=== PATIENT | female | born 1955 | race Caucasian/White ===

== ENCOUNTER → 2017-02-28 | Outpatient (CLI) | payer OTHER ==
[~2017-02-28] MED LIST: ARIMIDEX1 MG PO; ATORVASTATIN CA10 MG PO; BUMETANIDE2 M1 PO; BUMEX PO; BUMEX2 MG PO; BUPROPION XL300 M1 PO; CARTIA XT120 MG PO; CHEWABLE ASPIRI81 MG PO; CIPRO PO; CLARITIN10 M2 PO; CLARITIN10 M3 PO; COLCHICINE0.6 M1 PO; COLCRYS0.6 M2 PO; COUMADIN PO; COUMADIN6 MG PO; CYMBALTA PO; CYMBALTA30 MG PO; DIGITEK125 MC1 PO; DIGOX0.25 MG PO; DILTIAZEM HCL30 MG PO; DILTIAZEM HCL60 MG PO; ELIQUIS5 MG PO; FUROSEMIDE40 MG PO; FUROSEMIDE80 MG PO; GABAPENTIN300 M2 PO; GABAPENTIN600 MG PO; GLUCOTROL PO; HUMALOG100 U/M1 SUBQ; HUMULIN R500 UNIT/1 SUBQ; HUMULIN R500 UNIT/2 INJ; HYDROCHLOROTHIA25 MG PO; JANUVIA PO; LANOXIN PO; LANTUS SOLOSTAR3 ML SUBQ; LEVAQUIN250 MG PO; LEVO-T125 MCG PO; LIOTHYRONINE S25 MCG PO; LIPITOR PO; LOPRESSOR PO; LOVENOX SUBQ; LYRICA100 MG PO; LYRICA50 MG PO; MAGNESIUM OXID200 MG PO; METFORMIN HCL1000 M1 PO; METFORMIN PO; METOPROLOL SUCC50 MG PO; METOPROLOL TAR100 MG PO; MIRTAZAPINE45 M1 PO; MIRTAZAPINE45 MG PO; NAPROSYN375 MG PO; NOVOLOG FL100 UNIT/1 SUBQ; OXYCODON-ACETA1 EAC1 PO; OXYGEN; PROVERA PO; PROVERA10 MG PO; SYNTHROID125 PO; TAMBOCAR PO; TYLENOL #3 PO; VIGAMOX3 M1 OS; VITAMIN B12-FO1 EACH PO; VITAMIN D250000 UNIT PO; WARFARIN SODIUM10 M1 PO; WARFARIN SODIUM10 MG PO; WARFARIN SODIUM6 M1; WARFARIN SODIUM6 M1 PO; WELLBUTRIN SR PO; WELLBUTRIN XL PO; ZOVIRAX30 GM TOP; ZYLOPRIM PO; [UNRECOGNIZED DRUG - OTHER] AD
--- NOTE | ~2017-02-28 | CR127 ---
[facility]. [facility] A Service of [facility] & [facility] RADIOLOGY TEXT RESULTS PATIENT: BRYANT MOJICA LOCATION: [facility] : 54 UNIT #: [id number] AGE: [address]: Marcelina Davis MEDICAL RECORD ADMINISTRATOR SEX: F ORDER DR: [id number] [address] [address] [id number] O MR#: [id number] Acc #: [id number] NAME: BRYANT MOJICA : 1955 SEX: F STUDY DATE/TIME: 02/28/2017 16:14 UNIT: [facility] ROOM: STUDY DESCRIPTION: CR Foot Complete Min 3 View Rt Attending Physician: Marcelina Davis A.P.R.N. Referring Physician: Marcelina Davis A.P.R.N. Ordering Physician: Marcelina Davis A.P.R.N. Primary Care Physician: Janae Quispe M.D. MEDICAL IMAGING REPORT This report is preliminary unless electronic signature is present. EXAM Right foot INDICATIONS Bilateral foot pain for 4 weeks. FINDINGS 3 views of the right foot were obtained. There is degenerative change at the first tarsometatarsal with joint space narrowing and osteophyte formation. The other bones of the foot are normal. IMPRESSION Degenerative changes of the first tarsometatarsal joint. Otherwise normal. Dictated by... Derrick Torres M.D. THIS IS AN ELECTRONICALLY VERIFIED REPORT Derrick Torres M.D. at 03/02/2017 2:00 PM FEL/to TD: 03/01/2017 23:08 JOB #: [id number] MEDICAL IMAGING REPORT Page 1 of 1
--- NOTE | ~2017-02-28 | CR181 ---
[facility] [place]. [facility] A Service of [facility] & [facility] RADIOLOGY TEXT RESULTS PATIENT: BRYANT MOJICA LOCATION: [facility] : 53 UNIT #: [id number] AGE: [address]: Marcelina Davis ACCESS ASSOC SEX: F ORDER DR: [id number] [address] [address] [id number] O MR#: [id number] Acc #: [id number] NAME: BRYANT MOJICA : 1955 SEX: F STUDY DATE/TIME: 02/28/2017 16:14 UNIT: [facility] ROOM: STUDY DESCRIPTION: CR Lumbar Spine 2 or 3 Views Attending Physician: Marcelina Davis A.P.R.N. Referring Physician: Marcelina Davis A.P.R.N. Ordering Physician: Marcelina Davis A.P.R.N. Primary Care Physician: Janae Quispe M.D. MEDICAL IMAGING REPORT This report is preliminary unless electronic signature is present. EXAM Lumbar spine 3 view series HISTORY Low back pain for 4 weeks after falling out of a wheelchair. FINDINGS Three views of the lumbar spine were obtained. The vertebral bodies have normal alignment and the vertebral bodies are normal in height. The disc spaces are normal. There are mild facet degenerative changes at 4-5 and 3-4. IMPRESSION Mild lower lumbar spine facet degenerative changes. No subluxation or fracture. Dictated by... Derrick Torres M.D. THIS IS AN ELECTRONICALLY VERIFIED REPORT Derrick Torres M.D. at 03/02/2017 2:00 PM FEL/to TD: 03/01/2017 23:18 JOB #: [id number] MEDICAL IMAGING REPORT Page 1 of 1
--- NOTE | ~2017-02-28 | CR126 ---
[facility] A Service of [facility] & [facility] RADIOLOGY TEXT RESULTS PATIENT: BRYANT MOJICA LOCATION: [facility] : 54 UNIT #: [id number] AGE: [address]: Marcelina Davis COTTON BALL MACHINE TENDER SEX: F ORDER DR: [id number] [address] [address] [id number] O MR#: [id number] Acc #: [id number] NAME: BRYANT MOJICA : 1955 SEX: F STUDY DATE/TIME: 02/28/2017 16:14 UNIT: [facility] ROOM: STUDY DESCRIPTION: CR Foot Complete Min 3 View Lt Attending Physician: Marcelina Davis A.P.R.N. Referring Physician: Marcelina Davis A.P.R.N. Ordering Physician: Marcelina Davis A.P.R.N. Primary Care Physician: Janae Quispe M.D. MEDICAL IMAGING REPORT This report is preliminary unless electronic signature is present. EXAM Left foot. INDICATION Left foot pain for 4 weeks. FINDINGS 3 views of the left foot were obtained. The first IP joint is flexed, but otherwise, I believe it is normal. There are no fractures or significant degenerative changes. IMPRESSION Normal left foot. Dictated by... Derrick Torres M.D. THIS IS AN ELECTRONICALLY VERIFIED REPORT Derrick Torres M.D. at 03/02/2017 2:00 PM MEGAN/jeffrey TD: 03/01/2017 23:17 JOB #: [id number] MEDICAL IMAGING REPORT Page 1 of 1
== END | disposition home or self-care (01) ==
LOC: SRAD 15:50
DX: M79.672 Pain in left foot (principal); M79.671 Pain in right foot; M47.816 Spondylosis without myelopathy or radiculopathy, lumbar region
CPT/HCPCS: 72100; 73630

== ENCOUNTER 2017-04-22 17:50 | Observation (INO) | payer OTHER ==
--- NOTE | ~2017-04-22 | CO ---
Unit #: [id number] #: [id number] Patient: ARMANDO MOJICA [id number] [address] [place], [place] [address] [id number] I MR#: [id number] NAME: ARMANDO MOJICA ROOM: 564 Age: 61 Sex: F Admission Date: 04/22/2017 : 1955 Attending Physician: Sonam Delgado M.D. Primary Care Physician: Janae Quispe M.D. Consultation Date: 04/24/2017 CONSULTATION REPORT REASON FOR CONSULTATION Right ear pain and diabetic management. HISTORY OF PRESENTING ILLNESS Ms. armando Mojica is a 61-year-old morbidly obese female who was admitted by Dr. Kehinde Cooper with atrial fibrillation and rapid ventricular rate. The patient came with shortness of breath and racing for heart. The patient was started on Cardizem drip and was admitted to Telemetry Unit at [facility]. The patient also had elevated troponin of 0.5, which could be probably related to her rapid rate. The patient's palpitations have not improved. She just fell down today, scraped her right knee, and now complaining of chest pain. Cardiac enzymes and EKGs being done. The patient started complaining of right ear pain. According to the patient, she was seen by FLACA Hewitt and was told that she has a wax or some ear infection. She is not on any antibiotics. She does not complain of any discharge. She does not complain of dizziness. She does not complain of vertigo. PAST MEDICAL HISTORY The patient does have significant past medical history of; 1. Paroxysmal atrial fibrillation. 2. Hyperlipidemia. 3. Hypertension. 4. Diabetes mellitus type 2. 5. Hypothyroidism. 6. Pulmonary fibrosis. 7. Chronic respiratory failure, on home O2. 8. Chronic kidney disease. 9. Morbid obesity. 10. History of breast cancer. PAST SURGICAL HISTORY 1. History of bilateral mastectomy. 2. History of cholecystectomy. MEDICATIONS At this time are warfarin 10 mg, Cardizem 60 mg t.i.d., Toprol-XL 100 mg daily, Humulin R 200 units a.c. and at bedtime, Remeron at nighttime, aspirin 81 mg daily, Cymbalta 60 mg daily, Januvia 100 mg daily, Lipitor 10 mg daily, vitamin B12 of 100 mg daily, Wellbutrin 450 mg daily, Bumex 2 mg daily, Claritin 10 mg daily, Lanoxin 0.25 mg daily, vitamin D 50,000 units weekly, colchicine 0.6 mg daily, Neurontin 600 mg twice a day, Synthroid 0.125 mg daily, Provera 10 mg twice a day, and Zyloprim 300 mg daily. Unit #: [id number] #: [id number] Patient: ARMANDO MOJICA PHYSICAL EXAMINATION GENERAL: The patient does not seem to be in any respiratory distress. She has been evaluated in room 564. VITAL SIGNS: Blood pressure is 124/69, respiratory rate 18, pulse is 63, temperature 98.1, and oxygen saturation is 91%. The patient's BMI is 49. HEENT: Head is normocephalic. Eye movements are normal. Right ear, there is lot of sediment present, seems like impaction. Unable to visualize the right tympanic membrane. Left tympanic membrane, there are chronic changes and scarring is present. CHEST: Decreased air entry bilaterally. CVS: S1 and S2 positive. Irregular rhythm. ABDOMEN: Obese and benign. EXTREMITIES: Trace edema. RADIOLOGY ASST: The patient is awake, alert, and oriented x3. No focal neurological deficit. DIAGNOSTIC STUDIES LABORATORY RESULTS TODAY: WBC 6.9, hemoglobin 14.1, hematocrit 44.1, and platelet count 282. Sodium 140, potassium 3.6, chloride 103, BUN 33, and creatinine 1.3. Calcium 9.6, glucose is 197. PT/INR is 11.8 and 1.1. ASSESSMENT AND PLAN 1. Atrial fibrillation with rapid ventricular rate. The patient is on Cardene drip, which is being discontinued. The patient has been started on Lanoxin, beta-serena, and calcium channel serena. She is on anticoagulation therapy, Lanoxin and warfarin. The patient's INR is subtherapeutic that needs to be checked on daily basis. 2. Chest pain. The patient just had a chest pain. EKG and cardiac enzymes are being done. The patient's other treatment will be as per Cardiology. 3. Diabetes mellitus type 2, which is uncontrolled. Last hemoglobin A1c in October was 9.6. The patient is on very high dose of regular insulin. She is not on any Levemir at this time. We are going to start on long-acting insulin and continue sliding scale. The patient does have history of significant insulin resistance. Diet counseling done. 4. Right otalgia, most likely secondary to cerumen impaction. Debrox drops are being advised, 5 to 10 drops b.i.d. We will evaluate again to look at tympanic membrane. 5. Chronic respiratory failure, on home O2. Continue same. Dr. Mack has evaluated the patient. The patient will follow up with Dr. Mack as an outpatient. The patient does have significant pulmonary fibrosis. 6. Hypothyroidism. We are going to check TSH as last one done in 2016 showed elevated TSH. We may need to adjust the dose. 7. Morbid obesity. Again counseling done. Thank you, Dr. Bourne, for involving us in the patient's care. We will continue to follow along with you. Dictated by... Cata Faria M.D. GILLIAN/bryant TD: 04/26/2017 04:28 JOB #: [id number] Unit #: [id number] #: [id number] Patient: ARMANDO MOJICA CONSULTATION REPORT Page 1 of 1 X Cata Faria MD X CONSULTATION REPORT
--- NOTE | ~2017-04-22 | EKG ---
PATIENT: BRYANT MOJICA UNIT #: [id number] Ventricular Rate: 115 BPM Atrial Rate: 416 BPM QRS Duration: 64 ms Q-T Interval: 290 ms QTC Calculation(Bezet): 401 ms Calculated R Wilder: 24 degrees Calculated T Wilder: 8 degrees Diagnosis Line: Atrial fibrillation with rapid ventricular Diagnosis Line: response Diagnosis Line: Nonspecific ST abnormality Diagnosis Line: Abnormal ECG Diagnosis Line: When compared with ECG of 22-NOV-2016 06:54, Diagnosis Line: Vent. rate has increased BY 40 BPM Diagnosis Line: Nonspecific T wave abnormality no longer evident Diagnosis Line: in Anterolateral leads Diagnosis Line: Confirmed by CIRA YOST MD ([id number]) on Diagnosis Line: 04/23/2017 3:24:19 PM INTERPRETING MD: PRIYANK HERRERA
--- NOTE | ~2017-04-22 | CO ---
Unit #: [id number] #: [id number] Patient: BRYANT MOJICA [id number] [address] [place], [place] [address] [id number] I MR#: [id number] NAME: BRYANT MOJICA ROOM: 564 Age: 61 Sex: F Admission Date: 04/22/2017 : 1955 Attending Physician: Sonam Delgado M.D. Primary Care Physician: Janae Quispe M.D. CONSULTATION REPORT HISTORY OF PRESENT ILLNESS Ms. Mojica is a 61-year-old female, known to me from office visits, who has morbid obesity, chronic respiratory failure with nocturnal oxygen, obstructive sleep apnea on CPAP, and some degree of possible fibrosis. She actually was seen in the office again in 11/2016. At that time, she complained of increasing shortness of breath and we ordered PFTs and a CAT scan. She did not make either appointment. She now presents to the hospital with her heart racing. When that occurred, she had some chest discomfort and some shortness of breath. Otherwise, she denies any shortness of breath, wheezing, sputum production, or cough. PAST MEDICAL HISTORY Remarkable for paroxysmal atrial fibrillation, hyperlipidemia, diabetes, hypothyroidism, some degree of pulmonary fibrosis, history of breast cancer, chronic kidney disease, chronic respiratory failure, obstructive sleep apnea. MEDICATIONS At home, according to the EHR, metoprolol, Lipitor, Wellbutrin, Lanoxin, Cymbalta, Lantus insulin, Coumadin, Bumex, oxygen as above, CPAP as above. ALLERGIES No known medical allergies. SOCIAL HISTORY She is a nonsmoker. She does not drink. FAMILY HISTORY No familial lung disease. REVIEW OF SYSTEMS She really does not walk. She generally gets around in a wheelchair. No fever, chills, weight loss, chest discomfort as above. No abdominal pain, melena, hematochezia, hematemesis, hematuria, dysuria, focal weakness, paresthesias, leg pain, swelling, wheezing. She is on no inhaled medications. Further review of systems is negative. PHYSICAL EXAMINATION GENERAL: Reveals a patient, who is in no acute distress. VITAL SIGNS: She has a T-max of 100.7, now afebrile, pulse 84, respiratory rate is 18, blood pressure is 104/54. She is 5 feet 4 inches, weighed 286. BMI is 49, however, yesterday her weight was recorded at 335. She did not lose 50 pounds in less than 24 hours. Obviously, the Unit #: [id number] #: [id number] Patient: BRYANT MOJICA weights are inaccurate. Most of her weights are in the 340 range. HEENT: Pupils are equal, round, and reactive to light. Sclerae anicteric. Head atraumatic. NECK: Supple. No supraclavicular or cervical adenopathy appreciated. CHEST: Decreased breath sounds. No definite crackles or wheeze. CARDIAC: Regular rate and rhythm. No pathologic murmur, rub, or gallop. ABDOMEN: Soft and nontender. No hepatomegaly or rebound. EXTREMITIES: Reveal no clubbing, cyanosis, or edema. No calf tenderness. SKIN: Warm and dry without rash or diaphoresis. NEUROLOGIC: Grossly intact. No focal, motor or sensory deficits. Please note that her exam is severely limited by her body habitus. DIAGNOSTIC STUDIES IMAGING STUDIES: Chest x-ray fairly unremarkable. LABORATORY RESULTS: Creatinine 1.2. Blood sugar 367. Hemoglobin A1c in October was 9.9. TSH in October was 9.54. INR normal. CBC normal. Cardiac enzymes normal. No urinalysis performed. IMPRESSION 1. Paroxysmal atrial fibrillation. 2. Chronic respiratory failure with oxygen at night. 3. Obstructive sleep apnea, compliant with CPAP per history. 4. Possible fibrosis, failed to show for scheduled appointment for CT scan and did not get her PFTs. 5. Medical problems listed above. PLAN We will check room air O2 needs to guide therapy at home. Continue CPAP at night with sleep. I will ask family to bring it in, so she can use nightly. Consider PFTs as an outpatient, but her shortness of breath apparently has improved. She complains of no shortness of breath currently. Consider outpatient high-resolution CAT scan, but given her exam and chest x-ray, I am not convinced she has significant fibrosis such as UIP. Certainly, if she has worsening shortness of breath, that will have to be evaluated. Thank you very much for allowing me to participate in the care of Ms. Mojica. Dictated by... James Mack M.D. DAVIDSON/bryant TD: 04/24/2017 02:07 JOB #: [id number] Unit #: [id number] #: [id number] Patient: BRYANT MOJICA CONSULTATION REPORT Page 1 of 1 X James Mack MD CONSULTATION REPORT
--- NOTE | ~2017-04-22 | CO ---
Unit #: [id number] #: [id number] Patient: BRYANT MOJICA [id number] [facility] [address]. [place], [place] [address] [id number] I MR#: [id number] NAME: BRYANT MOJICA ROOM: 564 Age: 61 Sex: F Admission Date: 04/22/2017 : 1955 Attending Physician: Sonam Delgado M.D. Primary Care Physician: Janae Quispe M.D. Consultation Date: 04/25/2017 CONSULTATION REPORT ADDITIONAL REFERRING PHYSICIAN Dr. Rodriguez. REASON FOR CONSULTATION Left-sided numbness. PRIMARY CARE PHYSICIAN Janae Quispe M.D. PATIENT IDENTIFICATION This is a 61-year-old right-handed, white female, who was evaluated in room 564 at [facility]. SOURCE OF INFORMATION The patient and evaluation by admitting team and consultants. PROBLEM LIST 1. Paroxysmal atrial fibrillation. 2. Hyperlipidemia. 3. Diabetes. 4. Hypothyroidism. 5. Pulmonary fibrosis. 6. History of breast cancer. 7. Chronic kidney disease. 8. Morbid obesity. 9. Obstructive sleep apnea. She uses a CPAP. 10. Status post bilateral mastectomies. 11. History of cholecystectomy. HISTORY OF PRESENT ILLNESS This is a 61-year-old female with history of problems as discussed above. She was admitted on the because she felt short of air and racing of the heart. She was started on Cardizem drip. She has chronic respiratory failure. She was being evaluated, but yesterday it looks like she got up and she fell because she slipped in her own urine on the floor. This patient reports that she did not really hit her head hard or had significant flexion-extension injury, but she reported some numbness on the left side, not very significant weakness that may have gotten better yesterday, but she is complaining of some minimal numbness yesterday. Dr. Rodrgiuez ordered MRI of the brain, but because of her abdominal girth, she would not fit an MRI. She has no symptoms on the face. She has some minimal numbness on the left side, which is very nonspecific. The patient reports that she has immobilization because she has had Unit #: [id number] #: [id number] Patient: BRYANT MOJICA "sciatica surgery" and she uses mostly wheelchair or walker and she only pivots, so there is some left-sided weakness, but again how much of that is new and what about the comorbidities. It does not look like stroke-like situation though she is on anticoagulation, but with low INR. No headaches. No migraines. No seizures. No paralytic type issues. PAST MEDICAL HISTORY As discussed above. PAST SURGICAL HISTORY As discussed above. ALLERGIES None. HOME MEDICATIONS Metoprolol 50 mg b.i.d., Lipitor 10 mg daily, Wellbutrin 100 mg daily, Lanoxin 250 mcg daily, Cymbalta 60 mg daily, Lantus 100 units subcutaneous at night, Coumadin 10 mg daily, oxygen p.r.n., Bumex. The above other medication at home and please refer to the MAR as medications here. FAMILY HISTORY No primary neurologic issues known. SOCIAL HISTORY She is . She has limited mobility. Does not smoke. Does not drink. REVIEW OF SYSTEMS GENERAL: Mostly as discussed in history of present illness. She denies any weight issues, fever, chills, rigor, or sweats. She does have chronic breathing issues. HEENT: She denies any problems as far the HEENT is concerned. NECK: No real neck problem. CARDIOVASCULAR: No chest pain. She was supposed to be on anticoagulation otherwise. GI: No nausea, vomiting, diarrhea, or constipation. GENITOURINARY: No genitourinary symptoms. LUNGS: She has chronic shortness of air. Chronic pulmonary issues. BACK: She has chronic back problem. PSYCHIATRIC: No psychotic issue. NEUROLOGIC: As discussed. No hematologic, dermatologic, or endocrine issues. PHYSICAL EXAMINATION VITAL SIGNS: Temperature 98.5, pulse 79, respirations 18, blood pressure is 114/81, pain was 0 to 7/10, O2 saturations were 95% to 97%, weight was 332 pounds. BMI was 57. NEUROLOGIC: The patient is awake. She is alert. She thinks it is the 04/23 or 04/24. She can name. She can follow commands. No right or left confusion. No finger agnosia. Unit #: [id number] #: [id number] Patient: BRYANT MOJICA Cranial nerve examination demonstrates full [place] of vision to confrontation. Eye movements are conjugate. I did not see any ptosis. I did not see any nystagmus. Extraocular movements are intact. Sensation on the face and scalp are normal. Strength of muscles of facial expression normal. Hearing seemed to be intact. Tongue was midline. Uvula was midline. Palate elevation normal. Head turning and shoulder shrugs were unremarkable. Motor examination demonstrated normal bulk and tone and strength in upper extremity was 5-/5. Her biggest problem was that she has had bilateral rotator cuff problems. In her lower extremities, she may have weakness on the left side. She is 3+ on the left side and 4- on the right side. Again level of effort is very questionable and I believe her immobilization and her obesity and positioning and her chronic problems are contributing towards this. No particular pattern like proximal versus distal or particular radicular or peripheral nerve type pattern. Sensory examination, decreased sensation on the left side. No particular pattern was identified, nothing on the face, just below the neck. Romberg was not evaluated. No extinction was seen. I could not get any reflexes. Toes are mute. Coordination for mvxtuw-ig-pzbi-to-finger was somewhat limited, but she was able to do it because of her rotator cuff injury and also she has good fine movements and repetitive movements. DIAGNOSTIC STUDIES LABORATORY RESULTS: Her BUN this morning was 39; creatinine was 1.5; GFR estimated was 37; glucose was 66, it was as high as 387. AST was 69. Troponin yesterday was 0.14. Previously high hemoglobin A1c. High triglycerides. White count was 6.9, H and H of 14.1 and 44.1, platelet count was 282. Urinalysis, there was concern about UTI. IMPRESSION This is a very interesting, but very complicated 61-year-old female, who actually had a fall yesterday. She has been complaining of left-sided numbness. There is nothing on the face. This is not fitting the typical in a classic pattern of stroke or transient ischemic attack. We cannot do an MRI, so I would recommend to do CT of the head and CT of the cervical spine and also do carotids. If the CT of the head and carotids are okay and nothing major is shown on CT of the cervical spine, then my recommendation would be to have Spine Surgery see her, though I really doubt that there is a major issue but I cannot rule anything out and I cannot do an MRI. I cannot do with contrast study. I cannot do CTA, so we are limited, but again limited examination, but comorbidities and the recent event point towards more spinal process than anything else, but we will see how things return clerk. Please refer to my orders and I will see her. Call me for any other particular questions or issues. Dictated by... Melva Becker/bryant Unit #: [id number] #: [id number] Patient: BRYANT MOJICA TD: 04/26/2017 08:42 JOB #: [id number] CONSULTATION REPORT Page 1 of 1 X Km Hull MD X CONSULTATION REPORT
--- NOTE | ~2017-04-22 | CR170 ---
[facility] A Service of [facility] & [facility] RADIOLOGY TEXT RESULTS PATIENT: BRYANT MOJICA LOCATION: [facility] 564-01 : 54 UNIT #: [id number] AGE: [address]: Sonam Delgado MD SEX: F ORDER DR: [id number] [facility] [address] [facility]. [place], [place] [address] [id number] I MR#: [id number] Acc #: [id number] NAME: BRYANT MOJICA : 1955 SEX: F STUDY DATE/TIME: 04/24/2017 16:55 UNIT: [facility] ROOM: [facility] STUDY DESCRIPTION: CR Knee 2 Views Rt Attending Physician: Sonam Delgado M.D. Ordering Physician: Sonam Delgado M.D. Primary Care Physician: Janae Quispe M.D. MEDICAL IMAGING REPORT This report is preliminary unless electronic signature is present EXAM Right knee, 2 views. INDICATIONS Pain and swelling after falling today. COMPARISON No comparisons available. FINDINGS There is extensive patellofemoral compartment degenerative change. There is no evidence for joint effusion. There is moderate medial compartment narrowing. There is also some degenerative change in the medial and lateral compartment with osteophyte formation. No evidence of dislocation. IMPRESSION Extensive degenerative changes about the knee with no evidence for fracture or dislocation. Dictated by... Adriano Limon M.D. THIS IS AN ELECTRONICALLY VERIFIED REPORT Adriano Limon M.D. at 04/25/2017 7:24 PM SHAUN/jeffrey TD: 04/24/2017 19:53 JOB #: [id number] MEDICAL IMAGING REPORT Page 1 of 1 COPY
--- NOTE | ~2017-04-22 | BMI ---
[facility] Nutrition Therapy DATE: 04/23/17 Patient: BRYANT MOJICA Physician: ATTPRE Address: [address] [place] [address] DRIVE Room/Bed: [address] [place] [address], Zip: [place] [address] Admit Date: 04/22/17 Date of : 53 Height: 5 4 Weight: 286 129.8 HIGH BMI NOTE: DX: 61 Y.O. FEMALE ADMITTED FOR CHEST PAIN X 2 WEEKS ANTHROPOMETRICS: 5'4", WT: 335# (152 KG), BMI: 57.5 DIET: HEALTHY HEART + CONSISTENT CARBOHYDRATE DIET RECOMMENDATIONS: 1. RECOMMEND TO CONTINUE CURRENT DIET ORDER ABOVE TO PROMOTE GRADUAL WEIGHT LOSS TOWARDS HEALTHY BMI (19.0-25.0) OR +/-10%IBW RD WILL F/U PER PROTOCOL Respectfully, SAM SCHWARTZ MS, RD, LD [facility] cc: client file
--- NOTE | ~2017-04-22 | CT71 ---
[facility] A Service of [facility] RADIOLOGY TEXT RESULTS PATIENT: BRYANT MOJICA LOCATION: [facility] 564-01 : 54 UNIT #: [id number] AGE: [address]: Sonam Delgado MD SEX: F ORDER DR: [id number] [facility] [address] [place], [place] [address] [id number] I MR#: [id number] #: [id number] NAME: BRYANT MOJICA : 1955 SEX: F STUDY DATE/TIME: 04/25/2017 14:13 UNIT: [facility] ROOM: [facility] STUDY DESCRIPTION: CT Head Wo Contrast Attending Physician: Sonam Delgado M.D. Ordering Physician: Km Hull M.D. Primary Care Physician: Janae Quispe M.D. MEDICAL IMAGING REPORT This report is preliminary unless electronic signature is present EXAM CT brain without contrast media, date of study is 04/25. COMPARISON 10/24/2015 HISTORY Fell 1 day ago getting out of hospital bed, bumped head, head and neck pain, slight headache after fall. TECHNIQUE Axial imaging of the brain was performed without contrast media and compared directly to the most recent study of October 24, 2015. This CT exam was performed with one or more of the following radiation dose reduction techniques: Automatic exposure control, adjustment of mA and/or kV according to patient size, and iterative reconstruction. FINDINGS There is a new area of encephalomalacia in the right frontal operculum as well as in the right insular cortex. There is no mass effect associated with this, nor effacement of the overlying sulci suggesting it is chronic, but it has appeared since 2014. Ventricular size and configuration is stable. No mass lesions or mass effect are identified. There is atherosclerotic disease within the carotid siphons and in the vertebral arteries. Bone windows are reviewed and no fractures are identified. 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 This has appeared since 2014 but clearly appears chronic. No additional findings within the brain. No fractures identified. STS. [facility] A Service of [facility] RADIOLOGY TEXT RESULTS PATIENT: BRYANT MOJICA LOCATION: [facility] 564-01 : 53 UNIT #: [id number] AGE: [address]: Sonam Delgado MD SEX: F ORDER DR: Dictated by... Jose L Sims M.D. THIS IS AN ELECTRONICALLY VERIFIED REPORT Jose L Sims M.D. at 04/26/2017 10:22 AM NICO/paula TD: 04/25/2017 21:29 JOB #: [id number] MEDICAL IMAGING REPORT Page 1 of 1 COPY
--- NOTE | ~2017-04-22 | CT52 ---
[facility] A Service of [facility] RADIOLOGY TEXT RESULTS PATIENT: BRYANT MOJICA LOCATION: [facility] 564-01 : 54 UNIT #: [id number] AGE: [address]: Sonam Delgado MD SEX: F ORDER DR: [id number] [facility] [address] [place], [place] [address] [id number] I MR#: [id number] Acc #: [id number] NAME: BRYANT MOJICA : 1955 SEX: F STUDY DATE/TIME: 04/25/2017 12:02 UNIT: [facility] ROOM: [facility] STUDY DESCRIPTION: CT Cervical Spine Wo Cont Attending Physician: Sonam Delgado M.D. Ordering Physician: Km Hull M.D. Primary Care Physician: Janae Quispe M.D. MEDICAL IMAGING REPORT This report is preliminary unless electronic signature is present EXAM CT cervical spine without contrast, dated 04/25/2017. COMPARISON STUDIES None. HISTORY Patient fell a day ago on the floor while getting out of hospital bed. Patient states that she banged her head and has left-sided headache and neck pain since then. Headache has improved today. TECHNIQUE This CT exam was performed with one or more of the following radiation dose reduction techniques: automatic exposure control, adjustment of mA and/or kV according to patient size, and iterative reconstruction. FINDINGS CT of the cervical spine was obtained without contrast in the axial plane followed by sagittal and coronal reformats. Endplate osteophytes are noted in the anterior and posterior aspects. Discs and facet changes are present. C2-3: Disc osteophyte complex which is slightly prominent in the center, particularly in the left central region. Moderate bilateral facet hypertrophic changes are seen with mild canal stenosis. Minimal inferior left neural foraminal encroachment. C3-4: Disc osteophyte complex with bilateral uncinate spurs. Very severe right and zdkw-rq-hmeilhth left facet hypertrophic change. Severe bilateral neural foraminal narrowing is noted with probably mild canal stenosis. Streak artifact limits evaluation. [facility] A Service of [facility] RADIOLOGY TEXT RESULTS PATIENT: BRYANT MOJICA LOCATION: [facility] 564-01 : 53 UNIT #: [id number] AGE: [address]: Sonam Delgado MD SEX: F ORDER DR: C4-5: Disc osteophyte complex with bilateral uncinate spurs, worse on the left. Severe left and moderate right facet hypertrophic changes are noted with severe left neural foraminal narrowing. Borderline size to mild canal stenosis. C5-6: Disc osteophyte complex with bilateral uncinate spurs. Very severe left and severe right neural foraminal narrowing are noted with moderate canal stenosis. Moderate bilateral facet changes are present. C6-7: Disc osteophyte complex with bilateral uncinate spurs, worse on the left. Severe left and ocqg-ex-nsrhvnwt right neural foraminal narrowing is seen with mild right and moderate to severe left facet hypertrophic change. There is probably moderate canal stenosis, difficult to further characterize due to streak artifact. C7-T1: Disc osteophyte complex with severe left and mild right facet hypertrophic change. Ebzn-bb-bkovdkcl left neural foraminal narrowing is seen with borderline size canal. IMPRESSION 1. No acute fracture or subluxation. 2. Degenerative disc and facet changes are noted at multiple levels as described above, worse at C6-7 followed by C5-6 with canal stenosis and bilateral neural foraminal narrowing. 3. Patient's large body habitus causes streak artifact limiting evaluation of the canal throughout most of the visualized cervical spine. 4. No acute fracture or subluxation. Dictated by... Fiona Knight M.D. THIS IS AN ELECTRONICALLY VERIFIED REPORT Fiona Knight M.D. at 04/26/2017 11:44 AM CPR/jt TD: 04/25/2017 22:05 JOB #: [id number] MEDICAL IMAGING REPORT Page 1 of 1 COPY
--- NOTE | ~2017-04-22 | EKG ---
PATIENT: BRYANT MOJICA UNIT #: [id number] Ventricular Rate: 84 BPM Atrial Rate: 73 BPM QRS Duration: 72 ms Q-T Interval: 386 ms QTC Calculation(Bezet): 456 ms Calculated R Coleman: 13 degrees Calculated T Coleman: 21 degrees Diagnosis Line: Atrial fibrillation Diagnosis Line: Nonspecific ST and T wave abnormality Diagnosis Line: Abnormal ECG Diagnosis Line: No previous ECGs available Diagnosis Line: Confirmed by JACQUI DRAKE MD ([id number]) on 04/25/2017 Diagnosis Line: 8:23:31 PM INTERPRETING MD: NOELLE HERRERA
--- NOTE | ~2017-04-22 | CR72 ---
[facility] A Service of [facility] RADIOLOGY TEXT RESULTS PATIENT: BRYANT MOJICA LOCATION: [facility] [address] : 54 UNIT #: [id number] AGE: [address]: Sonam Delgado MD SEX: F ORDER DR: [id number] [facility] [address] [facility] [place], [place] [address] [id number] I MR#: [id number] Acc #: [id number] NAME: BRYANT MOJICA : 1955 SEX: F STUDY DATE/TIME: 04/22/2017 20:28 UNIT: [facility] ROOM: [facility] STUDY DESCRIPTION: CR Chest Single View Portable Attending Physician: Sonam Delgado M.D. Ordering Physician: Hayden Leyva M.D. Primary Care Physician: Janae Quispe M.D. MEDICAL IMAGING REPORT This report is preliminary unless electronic signature is present EXAM Single view chest INDICATION Chest pain for 2 weeks. Pain radiating into the left arm. Left arm numbness and tingling. FINDINGS Single portable AP view of the chest is compared to 11/20/2016. Heart and mediastinal contours within normal limits. Lungs are clear. No pleural effusion. IMPRESSION No acute cardiopulmonary findings. Dictated by... Keshawn Hartman M.D. THIS IS AN ELECTRONICALLY VERIFIED REPORT Keshawn Hartman M.D. at 04/23/2017 10:56 AM ELIER/ilda TD: 04/23/2017 10:29 JOB #: [id number] MEDICAL IMAGING REPORT Page 1 of 1 COPY
--- NOTE | ~2017-04-22 | HP ---
Unit #: [id number] #: [id number] Patient: BRYANT MOJICA [id number] [address] [address] [id number] I MR#: [id number] NAME: BRYANT MOJICA ROOM: 564 Age: 61 Sex: F Admission Date: 04/22/2017 : 1955 Attending Physician: Sonam Delgado M.D. Primary Care Physician: Janae Quispe M.D. HISTORY AND PHYSICAL CHIEF COMPLAINT Shortness of breath with palpitations. HISTORY OF PRESENT ILLNESS This is a 61-year-old woman who has a history of hypertension, diabetes and obesity. She also has a history of paroxysmal atrial fibrillation. She was admitted yesterday because she felt short of breath and racing of her heart. She was started on Cardizem drip. At this moment she is feeling better. She denies orthopnea, PND, palpitations. PAST MEDICAL HISTORY 1. Paroxysmal atrial fibrillation. 2. Hyperlipidemia. 3. Diabetes. 4. Hypothyroidism. 5. Pulmonary fibrosis. 6. History of breast cancer. 7. Chronic kidney disease. 8. Morbid obesity. PAST SURGICAL HISTORY 1. Left mastectomy. 2. Right mastectomy. 3. History of cholecystectomy. SOCIAL HISTORY She does not smoke. Does not drink. FAMILY HISTORY Negative for premature coronary artery disease. ALLERGIES No known drug allergies. CURRENT MEDICATIONS 1. Metoprolol 50 mg b.i.d. 2. Lipitor 10 mg daily. 3. Wellbutrin 100 mg daily. 4. Lanoxin 250 mcg daily. 5. Cymbalta 60 mg daily. 6. Lantus 100 mg subcutaneous at night. 7. Coumadin 10 mg daily. 8. Oxygen p.r.n. 9. Bumex 2 mg b.i.d. Unit #: [id number] #: [id number] Patient: BRYANT MOJICA REVIEW OF SYSTEMS Morbidly obese. Physical she is not very active. She is short of breath all the time. She has a lot of back pain. She has a lot of knee pain. All other systems reviewed and negative. PHYSICAL EXAMINATION GENERAL: She looks comfortable lying in bed. No distress. VITALS: Heart rate 80, blood pressure 122/58, respiratory rate 18. HEENT: Normal pupils, round and reactive. Oral mucosa moist. No central cyanosis. NECK: She has no thyromegaly. Carotid upstroke is normal. Jugular venous distension is not elevated. CHEST: She is breathing normal. Clear to auscultation. HEART: She has no parasternal lift. S1 and S2 normally heard. No gallop. No murmur or rub. ABDOMEN: Soft. Liver and spleen are not enlarged. Abdominal aorta not palpable. Guaiac test not indicated. EXTREMITIES: She has no pedal edema. Two plus bilateral femoral and dorsalis pedis pulses. Digits no clubbing. SKIN: No rash or abnormal pigmentation. NEUROLOGIC: She is oriented times three. Mood is normal. Muscle tone in all extremities normal. DIAGNOSTIC STUDIES CARDIOVASCULAR: She had an echo in the past showing ejection fraction of 55% with LVH. Right now EKG is showing atrial fibrillation with controlled rate. Nonspecific ST and T changes. ASSESSMENT 1. Atrial fibrillation with rapid ventricular rate. 2. Elevated troponin, which is 0.15. That is probably related to her rapid rate. 3. History of hypertension, diabetes and high cholesterol. 4. History of severe morbid obesity with sleep apnea and pulmonary fibrosis. PLAN 1. I increased her metoprolol and increased her p.o. Cardizem. 2. I will consult [facility] for diabetes management. 3. I will also consult Dr. Mack for pulmonary fibrosis. 4. I will treat her medically at this moment. I do not think doing an ischemia workup or cardiac catheterization is indicated, because she is not having any chest pain and no ST and T changes. She definitely has troponin elevation, but that is probably related to her atrial fibrillation with rapid rate. Dictated by Melva Leonardo TD: 04/23/2017 10:07 JOB #: [id number] CC: Matthias Rodriguez M.D. Unit #: [id number] #: [id number] Patient: BRYANT MOJICA HISTORY AND PHYSICAL Page 1 of 1 X Kehinde Cooper MD HISTORY AND PHYSICAL
--- NOTE | ~2017-04-22 | US37 ---
[facility] A Service of [facility] RADIOLOGY TEXT RESULTS PATIENT: BRYANT MOJICA LOCATION: [facility] 564-01 : 53 UNIT #: [id number] AGE: [address]: Sonam Delgado MD SEX: F ORDER DR: [id number] [id number] [facility]. [place], [place] [address] [id number] I MR#: [id number] Acc #: [id number] NAME: BRYANT MOJICA : 1955 SEX: F STUDY DATE/TIME: 04/25/2017 13:37 UNIT: [facility] ROOM: [facility] STUDY DESCRIPTION: US Carotid W/Doppler Bilateral Attending Physician: Sonam Delgado M.D. Ordering Physician: Km Hull M.D. Primary Care Physician: Janae Quispe M.D. MEDICAL IMAGING REPORT This report is preliminary unless electronic signature is present EXAM Carotid Doppler. INDICATIONS Headaches for 1 year. Loss of balance and confusion. Patient has a history of hypertension, hyperlipidemia and diabetes. TECHNIQUE Bilateral carotid ultrasound examination was performed using wyatt-scale, spectral Doppler, and color-flow Doppler imaging. Carotid flow was assessed using standards based on NASCET methodology. FINDINGS Ultrasound examination of the carotid artery shows some mild plaque diffusely throughout the common and internal carotid arteries. Doppler evaluation shows normal flow velocities and normal Doppler waveforms within the carotid and vertebral arteries bilaterally. Peak systolic internal carotid artery flow velocities measure up to 79 cm/sec on the right and 92 cm/sec on the left. There is no evidence of significant carotid stenosis in the neck. IMPRESSION Mild carotid disease. No Doppler ultrasound evidence of flow-limiting or clinically significant carotid stenosis. Dictated by... Lauren Perkins M.D. THIS IS AN ELECTRONICALLY VERIFIED REPORT Lauren Perkins M.D. at 04/26/2017 2:47 PM AFF/jt [facility] A Service [facility] RADIOLOGY TEXT RESULTS PATIENT: BRYANT MOJICA LOCATION: [facility] 564-01 : 53 UNIT #: [id number] AGE: [address]: Sonam Delgado MD SEX: F ORDER DR: TD: 04/25/2017 18:41 JOB #: [id number] MEDICAL IMAGING REPORT Page 1 of 1 COPY
--- NOTE | ~2017-04-22 | EKG ---
PATIENT: JESSIE MOJICAY UNIT #: [id number] Ventricular Rate: 162 BPM Atrial Rate: 324 BPM QRS Duration: 78 ms Q-T Interval: 274 ms QTC Calculation(Bezet): 449 ms P [place]: 200 degrees Calculated R [place]: 19 degrees Calculated T [place]: -26 degrees Diagnosis Line: Atrial flutter with variable A-V block with Diagnosis Line: premature ventricular or aberrantly conducted Diagnosis Line: complexes Diagnosis Line: Possible Inferior infarct , age undetermined Diagnosis Line: Abnormal ECG Diagnosis Line: Diagnosis Line: Confirmed by CIRA YOST MD ([id number]) on Diagnosis Line: 04/23/2017 3:24:27 PM INTERPRETING MD: PRIYANK HERRERA
--- NOTE | ~2017-04-22 | DS ---
Unit #: [id number] #: [id number] Patient: BRYANT MOJICA [id number] [facility]. [place], [place] [address] [id number] I MR#: [id number] NAME: BRYANT MOJICA ROOM: 564 Age: 61 Sex: F Admission Date: 04/22/2017 : 1955 Discharge Date: 04/29/2017 Attending Physician: Matthias Rodriguez M.D. Primary Care Physician: Janae Quispe M.D. DISCHARGE SUMMARY REASON FOR ADMISSION Shortness of breath with palpitations. HOSPITAL COURSE The patient is a 61-year-old female who presented to the [facility] ED on 04/22 at 5 p.m. with complaints of chest pain as well as shortness of breath on and off for the past two weeks. The patient was initially given a loading dose of IV Cardizem and on a Cardizem drip for rate control where her rate obtained control and she was taken off the drip and switched to p.o. medications. The patient did come in with a subtherapeutic INR for the permanent AFib with an INR of 1.1. The patient was placed on Lovenox bridge to Coumadin which is now therapeutic at 2. HIPS was consulted for diabetes management. The patient follows with Dr. Quispe and nurse practitioner in the office and Dr. Faria was consulted during her stay here for help with her diabetes management while she was off her Metformin. Dr. Mack was consulted for pulmonary fibrosis. She uses a CPAP and is compliant with that. There is consideration for pulmonary function tests as an outpatient. We will have the patient to follow up with Dr. Mack. The patient apparently is going to contact Dr. Mack's office to obtain new CPAP supplies. On 04/24, the patient had a fall here in the hospital where she states she got out of the right side of her bed and had to go around the foot of her bed to the other side in order to get on the bedside commode. This is an unusual activity for her as she had been only getting out on the left side of the bed and stand and pivoting to the chair which is her normal level of activity at home as well. The patient states that when she got to the foot of the bed, there was a wet spot, possibly urine, in the floor that she slipped on and she suffered a scrap to her knee. X-ray of the knee was obtained and there was no fracture. Later that day, Dr. Rodriguez saw the patient and there was some mention that her left side was weaker than it had normally bed. Therefore, there was concern for possible stroke with the AFib and the subtherapeutic INR. Neurology was consulted. Neurology recommended to get a MRI and, if positive, they would see the patient. However, the patient was too large for the MRI machine and unable to have it. Therefore, Neurology was consulted for further evaluation and workup. Neurology completed CT scans of the patient which showed chronic old infarct, nothing new and acute. She also had some spinal stenosis of the C5-6 and C6-7 area. It was offered for her to go down to [facility] to have a Neurosurgery consult. However, the patient did not want to do that at this time. She will follow up in the office with an outpatient neurologist, Dr. Marck Mejia. Unit #: [id number] #: [id number] Patient: BRYANT MOJICA The patient also suffered an acute kidney injury where her creatinine jethro to 1.5. Therefore, Renal was consulted and her diuretics were stopped. Renal was consulted and her creatinine improved where now it is at 1.2. They have okayed for her to go home and follow up in the office with Dr. Corado, who is her regular renal doctor. On day of discharge, the patient is doing well. She has no complaints of shortness of breath, chest pain, pressure or tightness. Vital signs are 111/57, temp 99, pulse 70, respirations 18. PHYSICAL EXAMINATION GENERAL APPEARANCE: This is an alert and oriented 61-year-old white female who is in no apparent distress. HEART: S1, S2. Regular rate and rhythm. LUNGS: Clear. ABDOMEN: Rounded, soft, nontender, nondistended. EXTREMITIES: No swelling. NEUROLOGIC: No neurological deficit. The patient does have some baseline weakness on the left side that is more so than the right. DISCHARGE DIAGNOSES 1. Paroxysmal atrial fibrillation, right now currently in sinus rhythm. 2. Elevated troponin that was indeterminate with a peak of 0.15. 3. Subtherapeutic INR now therapeutic. 4. Status post fall 04/24 where she slipped in pee. 5. Hypertension, hyperlipidemia, diabetes. 6. Severe morbid obesity. 7. Obstructive sleep apnea. 8. Pulmonary fibrosis. 9. 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 10. Acute kidney injury, resolved. 11. Old cerebrovascular accident on CT. DIAGNOSTIC TESTING LABORATORY: Sodium 137, potassium 4, chloride 103, CO2 27, BUN 24, creatinine 1.2, glucose 215, magnesium 1.9. INR is pending. DISCHARGE PLAN We will draw PT and INR now to know what the INR result is, have that result called and, if it is within therapeutic range of 2 to 3, we will place to discharge the patient home. The patient will follow up with primary care office in one week for PT and INR monitoring. The patient will follow up with Dr. Rodriguez in two weeks. The patient will follow up with Dr. Marck Mejia for CT scan results that were abnormal. Spinal stenosis as needed. We will plan to have the patient follow up with her renal doctor in the office. DISCHARGE MEDICATIONS 1. Coumadin 10 mg p.o. at bedtime. 2. Gabapentin 600 mg p.o. twice a day. 3. Lyrica 100 mg p.o. twice a day as needed for pain. 4. Wellbutrin 450 mg p.o. daily. 5. Duloxetine 60 mg p.o. daily. 6. Mirtazapine 45 mg p.o. daily. 7. Metformin 1,000 mg p.o. daily. 8. Januvia 100 mg p.o. daily. 9. Claritin 10 mg p.o. daily. Unit #: [id number] #: [id number] Patient: BRYANT MOJICA 10. Provera 10 mg twice a day. 11. Acyclovir 5% ointment topically to the left cheek three times a day. 12. Digoxin 0.25 mg p.o. daily. 13. Cartia 180 mg p.o. daily. 14. Metoprolol succinate 50 mg p.o. twice a day. 15. Bumex 2 mg p.o. daily. 16. Lipitor 10 mg p.o. daily. 17. Humulin, regular insulin. 18. Debrox otic drops. 19. Allopurinol 300 mg p.o. daily. 20. Colchicine 0.6 mg p.o. daily. 21. Aspirin 81 mg p.o. daily. 22. Synthroid 0.25 mg p.o. daily. 23. Vitamin B12 100 mcg p.o. daily. 24. Vitamin D 50,000 units p.o. weekly. Dictated by... Awilda Tirado APRN for Melva Lewis TD: 05/01/2017 07:51 JOB #: [id number] DISCHARGE SUMMARY Page 1 of 1 X X DISCHARGE SUMMARY
[~2017-04-22 17:50] MED LIST changes: -BUMETANIDE2 M1 PO; -CARTIA XT120 MG PO; -CHEWABLE ASPIRI81 MG PO; -CLARITIN10 M3 PO; -COLCHICINE0.6 M1 PO; -DIGITEK125 MC1 PO; -DILTIAZEM HCL60 MG PO; -ELIQUIS5 MG PO; -GABAPENTIN600 MG PO; -HUMULIN R500 UNIT/2 INJ; -LEVO-T125 MCG PO; -LYRICA100 MG PO; -METOPROLOL SUCC50 MG PO; -VITAMIN B12-FO1 EACH PO; -WARFARIN SODIUM10 M1 PO; -WELLBUTRIN SR PO; -ZOVIRAX30 GM TOP; -ZYLOPRIM PO; -[UNRECOGNIZED DRUG - OTHER] AD
[2017-04-22 18:37] LABS: BASOPHIL# 0.1 X10e3 (0-0.3); EOSINOPHIL# 0.2 X10e3 (0-0.7); EOSINOPHIL% 1.8 % (0.0-7.0); HEMATOCRIT 43.9 % (35.0-45.0); HEMOGLOBIN 14.1 gm/dL (12.0-16.0); LYMPHOCYTE# 3.5 X10e3 (1.0-3.5); LYMPHOCYTE% 33.6 % (17.0-45.0); MEAN CELL VOLUME 91.6 FL (83-96); MEAN CORPUSCULAR HEMOGLOBIN 29.6 PG (28-34); MEAN CORPUSCULAR HGB CONC 32.3 g/dL (30-36); MEAN PLATELET VOLUME 7.9 FL (6.5-11.5); MONOCYTE# 0.9 X10e3 (0-1.0); MONOCYTE% 8.4 % (3.0-12.0); NEUTROPHIL# 5.7 X10e3 (1.5-7.1); NEUTROPHIL% 55.2 % (40-75); PLATELET COUNT 282 X10e3 (140-420); RED BLOOD COUNT 4.79 X10e (3.90-5.30); RED CELL DISTRIBUTION WIDTH 14.7 % (11.0-15.5); WHITE BLOOD COUNT 10.3 X10e3 (4.0-10.5)
[2017-04-22 18:38] LABS: DIFF IND NO
[2017-04-22 19:01] LABS: ALBUMIN SERUM 3.7 g/dL (3.5-5.0); BILIRUBIN, DIRECT 0.1 mg/dL (0.0-0.2); BILIRUBIN,INDIRECT 0.4 mg/dL (0.0-0.9); BILIRUBIN,TOTAL 0.5 mg/dL (0.2-2.0); BUN/CREATININE RATIO 29.16; CREATININE SERUM 1.2 mg/dL (0.6-1.4); GLOM FILT RATE Estimated 48.4 mL/min (>60); POTASSIUM 4.1 mmol/L (3.5-5.1); PROTEIN TOTAL SERUM 7.6 g/dL (6.0-8.3)
[2017-04-22 21:01] LABS: POC - CKMB 1.3 ng/mL (0.0-7.9); POC - TROPONIN <0.05 ng/mL (<=0.05)
[2017-04-22 21:28] LABS: CK TOTAL 30 IU/L (26-140)
[2017-04-22] MEDS ORDERED: WARFARIN SODIUM10 M1 PO (21:45)
[2017-04-22] MEDS ORDERED: CYMBALTA PO (21:45)
[2017-04-22] MEDS ORDERED: JANUVIA PO (21:46)
[2017-04-22] MEDS ORDERED: ATORVASTATIN CA10 MG PO (21:47)
[2017-04-22] MEDS ORDERED: PROVERA PO (21:47)
[2017-04-22] MEDS ORDERED: VITAMIN B12-FO1 EACH PO (21:48)
[2017-04-22] MEDS ORDERED: METOPROLOL SUCC50 MG PO (21:49)
[2017-04-22] MEDS ORDERED: METFORMIN PO (21:49)
[2017-04-22] MEDS ORDERED: BUMETANIDE2 M1 PO (21:55)
[2017-04-22] MEDS ORDERED: WELLBUTRIN SR PO (21:55)
[2017-04-22] MEDS ORDERED: CLARITIN10 M3 PO (21:56)
[2017-04-22] MEDS ORDERED: DIGITEK125 MC1 PO (21:56)
[2017-04-22] MEDS ORDERED: HUMULIN R500 UNIT/2 INJ (21:58)
[2017-04-22] MEDS ORDERED: DILTIAZEM HCL60 MG PO (21:59)
[2017-04-22] MEDS ORDERED: VITAMIN D250000 UNIT PO (21:59)
[2017-04-22] MEDS ORDERED: COLCHICINE0.6 M1 PO (22:00)
[2017-04-22] MEDS ORDERED: MIRTAZAPINE45 M1 PO (22:00)
[2017-04-22] MEDS ORDERED: GABAPENTIN600 MG PO (22:01)
[2017-04-22] MEDS ORDERED: LYRICA100 MG PO (22:02)
[2017-04-22] MEDS ORDERED: LEVO-T125 MCG PO (22:03)
[2017-04-22] MEDS ORDERED: ZYLOPRIM PO (22:03)
[2017-04-23 03:54] LABS: BASOPHIL# 0.1 X10e3 (0-0.3); BASOPHIL% 0.9 % (0-2.5); DIFF IND NO; EOSINOPHIL# 0.2 X10e3 (0-0.7); EOSINOPHIL% 2.1 % (0.0-7.0); HEMATOCRIT 42.7 % (35.0-45.0); HEMOGLOBIN 13.6 gm/dL (12.0-16.0); LYMPHOCYTE# 3.7 X10e3 (1.0-3.5); LYMPHOCYTE% 39.3 % (17.0-45.0); MEAN CELL VOLUME 92.2 FL (83-96); MEAN CORPUSCULAR HEMOGLOBIN 29.5 PG (28-34); MEAN CORPUSCULAR HGB CONC 31.9 g/dL (30-36); MEAN PLATELET VOLUME 7.9 FL (6.5-11.5); MONOCYTE# 0.8 X10e3 (0-1.0); MONOCYTE% 8.7 % (3.0-12.0); NEUTROPHIL# 4.5 X10e3 (1.5-7.1); PLATELET COUNT 271 X10e3 (140-420); RED BLOOD COUNT 4.62 X10e (3.90-5.30); WHITE BLOOD COUNT 9.3 X10e3 (4.0-10.5)
[2017-04-23 04:12] LABS: BUN/CREATININE RATIO 30.83; CREATININE SERUM 1.2 mg/dL (0.6-1.4); GLOM FILT RATE Estimated 48.4 mL/min (>60); POTASSIUM 4.1 mmol/L (3.5-5.1)
[2017-04-23 12:01] LABS: INR 1.1
[2017-04-24 05:47] LABS: HEMATOCRIT 44.1 % (35.0-45.0); HEMOGLOBIN 14.1 gm/dL (12.0-16.0); MEAN CELL VOLUME 92.2 FL (83-96); MEAN CORPUSCULAR HEMOGLOBIN 29.4 PG (28-34); MEAN CORPUSCULAR HGB CONC 31.9 g/dL (30-36); MEAN PLATELET VOLUME 7.9 FL (6.5-11.5); RED BLOOD COUNT 4.79 X10e (3.90-5.30); WHITE BLOOD COUNT 6.9 X10e3 (4.0-10.5)
[2017-04-24 05:52] LABS: INR 1.1; PROTHROMBIN TIME (PATIENT) 11.8 SECONDS (10.0-11.7)
[2017-04-24 07:15] LABS: BUN/CREATININE RATIO 25.38; CALCIUM SERUM 9.6 mg/dL (8.4-10.2); CREATININE SERUM 1.3 mg/dL (0.6-1.4); GLOM FILT RATE Estimated 43.9 mL/min (>60); POTASSIUM 3.6 mmol/L (3.5-5.1)
[2017-04-24 17:38] LABS: CK TOTAL 37 IU/L (26-140)
[2017-04-24 23:39] LABS: CK TOTAL 33 IU/L (26-140)
[2017-04-25 06:07] LABS: INR 1.3; PROTHROMBIN TIME (PATIENT) 13.9 SECONDS (10.0-11.7)
[2017-04-25 06:34] LABS: CALCIUM SERUM 9.5 mg/dL (8.4-10.2); CREATININE SERUM 1.5 mg/dL (0.6-1.4); MAGNESIUM 2.2 mg/dL (1.6-3.0); POTASSIUM 3.6 mmol/L (3.5-5.1)
[2017-04-25 12:46] LABS: CHOLESTEROL 231 mg/dL (0-200); HDL CHOLESTEROL 29 mg/dL (35-95)
[2017-04-25 12:47] LABS: TRIGLYCERIDES 432 mg/dL (10-160)
[2017-04-25 13:04] LABS: URINE APPEARANCE CLEAR; URINE BILIRUBIN NEG (NEG); URINE BLOOD NEG (NEG); URINE COLOR YELLOW; URINE GLUCOSE NEG (NEG); URINE KETONE NEG (NEG); URINE LEUKOCYTE ESTERASE NEG (NEG); URINE NITRATE NEG (NEG); URINE PROTEIN NEG (NEG); URINE SPECIFIC GRAVITY 1.011 (1.003-1.035); URINE UROBILINOGEN 0.2 MG/DL (NEG)
[2017-04-25 13:07] LABS: FOLATE (FOLIC ACID) 18.3 ng/mL (>5.8)
[2017-04-25 13:10] LABS: CULTURE INDICATED? NO
[2017-04-26 10:52] LABS: INR 1.6; PROTHROMBIN TIME (PATIENT) 17.7 SECONDS (10.0-11.7)
[2017-04-26 11:15] LABS: BUN/CREATININE RATIO 25.38; CALCIUM SERUM 9.6 mg/dL (8.4-10.2); CREATININE SERUM 1.3 mg/dL (0.6-1.4); GLOM FILT RATE Estimated 43.9 mL/min (>60); MAGNESIUM 2.1 mg/dL (1.6-3.0); POTASSIUM 4.3 mmol/L (3.5-5.1)
[2017-04-26 11:54] LABS: HEMATOCRIT 43.6 % (35.0-45.0); HEMOGLOBIN 14.1 gm/dL (12.0-16.0); MEAN CELL VOLUME 91.8 FL (83-96); MEAN CORPUSCULAR HEMOGLOBIN 29.6 PG (28-34); MEAN CORPUSCULAR HGB CONC 32.3 g/dL (30-36); MEAN PLATELET VOLUME 7.6 FL (6.5-11.5); RED BLOOD COUNT 4.75 X10e (3.90-5.30); RED CELL DISTRIBUTION WIDTH 15.1 % (11.0-15.5); WHITE BLOOD COUNT 7.2 X10e3 (4.0-10.5)
[2017-04-27 06:28] LABS: INR 1.6; PROTHROMBIN TIME (PATIENT) 17.8 SECONDS (10.0-11.7)
[2017-04-27 07:14] LABS: CALCIUM SERUM 9.2 mg/dL (8.4-10.2); CREATININE SERUM 1.5 mg/dL (0.6-1.4); MAGNESIUM 2.1 mg/dL (1.6-3.0)
[2017-04-28 06:48] LABS: PROTHROMBIN TIME (PATIENT) 21.4 SECONDS (10.0-11.7)
[2017-04-28 07:06] LABS: BUN/CREATININE RATIO 28.88; CALCIUM SERUM 9.2 mg/dL (8.4-10.2); CREATININE SERUM 0.9 mg/dL (0.6-1.4); GLOM FILT RATE Estimated 68.6 mL/min (>60); MAGNESIUM 1.9 mg/dL (1.6-3.0); POTASSIUM 3.6 mmol/L (3.5-5.1)
[2017-04-29 07:58] LABS: CREATININE SERUM 1.2 mg/dL (0.6-1.4); GLOM FILT RATE Estimated 48.4 mL/min (>60); MAGNESIUM 1.9 mg/dL (1.6-3.0)
[2017-04-29] MEDS ORDERED: CARTIA XT120 MG PO (13:43)
[2017-04-29] MEDS ORDERED: CHEWABLE ASPIRI81 MG PO (13:44)
[2017-04-29] MEDS ORDERED: [UNRECOGNIZED DRUG - OTHER] AD (13:46)
[2017-04-29] MEDS ORDERED: ZOVIRAX30 GM TOP (13:47)
[2017-04-29 15:08] LABS: INR 2.7; PROTHROMBIN TIME (PATIENT) 29.5 SECONDS (10.0-11.7)
== END 2017-04-29 18:45 | disposition home or self-care (01) ==
LOC: CED 17:50 → CEDOF 21:18 → C5C 21:18 → CED 22:31 → C5C 22:31 → CEDOF 22:31 → C5C 04-23 00:21 → CEDOF 04-23 00:21 → C5C 04-29 18:45
PROVIDERS: Emergency Medicine; Internal Medicine Cardiovascular Disease; Physician Assistant Medical; Psychiatry & Neurology Neurology
DX: I48.0 Paroxysmal atrial fibrillation (principal); Z79.01 Long term (current) use of anticoagulants; R79.89 Other specified abnormal findings of blood chemistry; I10 Essential (primary) hypertension; E78.5 Hyperlipidemia, unspecified; E11.9 Type 2 diabetes mellitus without complications; Z79.4 Long term (current) use of insulin; E03.9 Hypothyroidism, unspecified; I77.89 Other specified disorders of arteries and arterioles; M50.323 Other cervical disc degeneration at C6-C7 level; G93.89 Other specified disorders of brain; M17.11 Unilateral primary osteoarthritis, right knee; J96.10 Chronic respiratory failure, unspecified whether with hypoxia or hypercapnia; Z99.81 Dependence on supplemental oxygen; J84.10 Pulmonary fibrosis, unspecified; H92.01 Otalgia, right ear; R07.9 Chest pain, unspecified; E66.01 Morbid (severe) obesity due to excess calories; Z68.43 Body mass index [BMI] 50.0-59.9, adult; G47.33 Obstructive sleep apnea (adult) (pediatric); Z79.899 Other long term (current) drug therapy; Z90.13 Acquired absence of bilateral breasts and nipples; Z85.3 Personal history of malignant neoplasm of breast; Z86.73 Personal history of transient ischemic attack (TIA), and cerebral infarction without residual deficits
CPT/HCPCS: 70450; 71010; 72125; 73560; 80048; 80061; 80076; 80162; 81003; 82550; 82553; 82607; 82746; 82947; 83036; 83735; 83880; 84443; 84484; 85025; 85027; 85610; 93005; 93880; 94760; 96372; 96374; 96375; 96376; 97166; 99285; G0378; G8987-GO; G8988-GO; G8989-GO; J1650; J1815

== ENCOUNTER → 2017-05-13 | Outpatient (CLI) | payer OTHER ==
[~2017-05-13] MED LIST changes: +BUMETANIDE2 M1 PO; +CARTIA XT120 MG PO; +CHEWABLE ASPIRI81 MG PO; +CLARITIN10 M3 PO; +COLCHICINE0.6 M1 PO; +DIGITEK125 MC1 PO; +DILTIAZEM HCL60 MG PO; +ELIQUIS5 MG PO; +GABAPENTIN600 MG PO; +HUMULIN R500 UNIT/2 INJ; +LEVO-T125 MCG PO; +LYRICA100 MG PO; +METOPROLOL SUCC50 MG PO; +VITAMIN B12-FO1 EACH PO; +WARFARIN SODIUM10 M1 PO; +WELLBUTRIN SR PO; +ZOVIRAX30 GM TOP; +ZYLOPRIM PO; +[UNRECOGNIZED DRUG - OTHER] AD
--- NOTE | ~2017-05-13 | US24 ---
[facility] A Service of [facility] RADIOLOGY TEXT RESULTS PATIENT: BRYANT MOJICA LOCATION: [facility] : 54 UNIT #: [id number] AGE: [address]: Leti Salinas MD SEX: F ORDER DR: [id number] [facility] [address] [place], [place] [address] [id number] O MR#: [id number] Acc #: [id number] NAME: BRYANT MOJICA : 1955 SEX: F STUDY DATE/TIME: 05/13/2017 13:38 UNIT: [facility] ROOM: STUDY DESCRIPTION: US Breast Unilateral Attending Physician: Leti Salinas M.D. Ordering Physician: Leti Salinas M.D. Primary Care Physician: Janae Quispe M.D. MEDICAL IMAGING REPORT This report is preliminary unless electronic signature is present EXAM Ultrasound left breast on 05/13 INDICATIONS History of left mastectomy for breast cancer. Patient reports a palpable lesion in the operative bed for about the last 2 weeks. FINDINGS Sonographic evaluation was formed in the left mastectomy bed in multiple planes. There is a seroma just superficial to the chest wall within the operative bed which appears correspond to the palpable abnormality. It measures greater than 4.3 cm in greatest length and has a maximum depth of at least 9 mm. This extends up to the patient's scar. There is some skin thickening in the operative bed. No solid masses are seen. IMPRESSION Palpable abnormality appears to correspond to a seroma in the deep tissues in the mastectomy bed. There is some mild overlying skin thickening. No solid masses are seen. Findings were discussed with the patient. Clinical followup recommended. Patients over the age of 40 are entered into a reminder system with target due date for the next mammogram. A result letter will also be sent to the patient. BIRADS: 1 - benign findings Dictated by... Ryne Cho Jr., M.D. [facility] A Service of [facility] RADIOLOGY TEXT RESULTS PATIENT: BRYANT MOJICA LOCATION: [facility] : 54 UNIT #: [id number] AGE: [address]: Leti Salinas MD SEX: F ORDER DR: THIS IS AN ELECTRONICALLY VERIFIED REPORT Ryne Cho Jr., M.D. at 05/14/2017 1:53 PM SINGH/figueroa TD: 05/14/2017 07:21 JOB #: [id number] MEDICAL IMAGING REPORT Page 1 of 1 COPY
== END | disposition home or self-care (01) ==
LOC: CWCC 13:28
DX: L76.34 Postprocedural seroma of skin and subcutaneous tissue following other procedure (principal); Z85.3 Personal history of malignant neoplasm of breast; D70.9 Neutropenia, unspecified; C50.919 Malignant neoplasm of unspecified site of unspecified female breast
CPT/HCPCS: 76641

== ENCOUNTER 2017-06-03 15:00 | Observation (INO) | payer OTHER ==
[~2017-06-03] VITALS: Ht 162.6 cm; Wt 153.0 kg
--- NOTE | ~2017-06-03 | EKG ---
PATIENT: JESSIE MOJICAY UNIT #: [id number] Ventricular Rate: 114 BPM Atrial Rate: 342 BPM QRS Duration: 86 ms Q-T Interval: 352 ms QTC Calculation(Bezet): 485 ms P [place]: 216 degrees Calculated R [place]: -21 degrees Calculated T [place]: 2 degrees Diagnosis Line: Atrial flutter with variable A-V block Diagnosis Line: Inferior infarct (cited on or before 03-JUN-2017) Diagnosis Line: Abnormal ECG Diagnosis Line: When compared with ECG of 03-JUN-2017 15:06, Diagnosis Line: (unconfirmed) Diagnosis Line: Atrial flutter has replaced Supraventricular Diagnosis Line: tachycardia Diagnosis Line: Confirmed by JACQUI DRAKE MD ([id number]) on 06/04/2017 Diagnosis Line: 11:45:54 PM INTERPRETING MD: NOELLE HERRERA
--- NOTE | ~2017-06-03 | CR72 ---
[facility] A Service of [facility] RADIOLOGY TEXT RESULTS PATIENT: BRYANT MOJICA LOCATION: [facility] 558-01 : 54 UNIT #: [id number] AGE: [address]: Matthias Rodriguez MD SEX: F ORDER DR: [id number] [facility] [address] [place], [place] [address] [id number] I MR#: [id number] Acc #: [id number] NAME: BRYANT MOJICA : 1955 SEX: F STUDY DATE/TIME: 06/03/2017 15:20 UNIT: [facility] ROOM: [facility] STUDY DESCRIPTION: CR Chest Single View Portable Attending Physician: Matthias Rodriguez M.D. Ordering Physician: Hazel Viera M.D. Primary Care Physician: Janae Quispe M.D. MEDICAL IMAGING REPORT This report is preliminary unless electronic signature is present EXAM Chest portable 06/03/2017 1520 hours HISTORY 61-year-old with shortness of air, history of atrial fibrillation and diabetes. Symptoms began today. Elevated heart rate today. COMPARISON 04/22/2017 FINDINGS Portable AP chest demonstrates the patient to be rotated to the left. Allowing for this positioning, the heart size is stable. The lungs are clear and no effusions are seen. IMPRESSION Film is limited by leftward rotation of the patient. There is likely stable mild cardiomegaly. Lungs are clear and no effusions are seen. Dictated by... Candida Chaidez M.D. THIS IS AN ELECTRONICALLY VERIFIED REPORT Candida Chaidez M.D. at 06/04/2017 9:25 AM NICOLETTE/paula TD: 06/04/2017 00:03 JOB #: [id number] MEDICAL IMAGING REPORT Page 1 of 1 COPY
--- NOTE | ~2017-06-03 | DS ---
Unit #: [id number] #: [id number] Patient: BRYANT MOJICA [id number] [address] [address] [id number] I MR#: [id number] NAME: BRYANT MOJICA ROOM: 55 Age: 61 Sex: F Admission Date: 06/03/2017 : 1955 Discharge Date: 06/04/2017 Attending Physician: Matthias Rodriguez M.D. Primary Care Physician: Janae Quispe M.D. DISCHARGE SUMMARY DISCHARGE DIAGNOSES 1. Paroxysmal atrial fibrillation/flutter. 2. Hypertension. 3. Obstructive sleep apnea. 4. Hyperlipidemia. 5. Diabetes mellitus. 6. Pulmonary fibrosis. 7. History of breast cancer, status post double mastectomy with subsequent chemo and radiation therapy in the past. DISCHARGE MEDICATIONS 1. Eliquis 5 mg p.o. b.i.d. 2. Gabapentin 600 mg p.o. b.i.d. 3. Lyrica 100 mg p.o. b.i.d. as needed for pain. 4. Wellbutrin SR 450 mg p.o. daily. 5. Cymbalta 90 mg p.o. daily. 6. Mirtazapine 45 mg p.o. daily. 7. Metformin 1000 mg p.o. daily. 8. Januvia 100 mg p.o. daily. 9. Claritin 10 mg p.o. daily. 10. Provera 20 mg p.o. daily. 11. Digoxin 250 mcg p.o. daily. 12. Metoprolol succinate 50 mg p.o. b.i.d. 13. Bumex 2 mg p.o. daily. 14. Atorvastatin 10 mg p.o. daily. 15. Humulin R U-500 200 units injection. 16. Carbamide peroxide drops, 5-10 drops AD b.i.d. 17. Allopurinol p.o. daily. 18. Colchicine 0.6 mg p.o. daily. 19. Aspart 81 mg p.o. daily. 20. Levothyroxine 125 mcg p.o. daily. 21. Vitamin B12/folate 100 mcg p.o. daily. 22. Vitamin D2 50,000 units p.o. weekly. HOSPITAL COURSE This is a 61-year-old, morbidly obese, female who is followed by Dr. Rodriguez in the office. She has a past medical history of morbid obesity, DRAKE, paroxysmal atrial fibrillation/flutter on anticoagulation, had been on anticoagulation with Coumadin, prior stroke, hypertension, diabetes, hyperlipidemia, pulmonary fibrosis. The patient presented in the emergency room with a history of palpitations and chest discomfort. She was noted to be in atrial fibrillation with rapid ventricular response, was started on Cardizem drip and also her Cardizem dosing was changed, per the sorter lumber straightener, to 60 mg p.o. daily. Her EKG showed atrial Unit #: [id number] #: [id number] Patient: GALINA,BRYANT flutter with variable AV block, rate of 114 beats per minute, and prior inferior infarct, age undetermined. QTC interval 485 msec. Her cardiac enzymes remained negative throughout her hospitalization. At present, she is feeling much better. She denies further complaints of chest pain or shortness of breath. It is notable that throughout hospitalization, her blood pressure is running a tad on the lower side. Therefore, her Cardizem has been discontinued. She will continue on with her Toprol XL as well as her Digoxin. On admission, her INR was found to be subtherapeutic. The patient was agreeable for use of the newer novel anticoagulation medication. Cost was checked which ended up being about $19.00 per month. The patient was agreeable to this. She does have a high CHADS2-VASc score of 4 and she does need maintenance with chronic anticoagulation. Her cardiac rhythm today is stable with a controlled ventricular response. She actually has episodes of slow ventricular response on some review of the telemetry strips and, therefore, this was discussed with Dr. Cooper and it was determined that oral Cardizem could be stopped and she would just continue on with the Toprol XL as well as digoxin. Again, she is chest pain free. There are no signs or symptoms of fluid overload. She has a very mild trace lower extremity edema and she is wanting to go home today. CONSULTANTS There were no consultants on this case. DIAGNOSTIC STUDIES IMAGING: Chest x-ray shows stable mild cardiomegaly. Lungs are clear. No effusions are noted. LABORATORY: Glucose 164, BUN 26, creatinine 1.2, sodium 139, potassium 3.9, chloride 108, CO2 21, magnesium 1.8, albumin 3.4, AST is 47. BNP was 38. TSH was 3.12. Admission INR was 1.2. Troponin was less than 0.05. Hemoglobin 13.5, hematocrit 39.9, WBC 8.9, platelet count 286. CARDIOVASCULAR: EKG shows atrial flutter with variable AV block, rate of 114 beats per minute. Cannot rule out previous inferior infarct, age undetermined. QTC interval 485 msec. No acute ischemic change is noted. PHYSICAL EXAMINATION GENERAL: This is a very pleasant female who is morbidly obese. She is in no acute distress. VITAL SIGNS: Temperature 98.6, respiratory rate 16-18, pulse is 62, blood pressure 100/58. HEENT: Head is atraumatic, normocephalic. Pupils are equal and round. Mucous membranes are moist. NECK: Trachea is midline. No lymphadenopathy, no thyromegaly, no JVD. Carotid upstrokes are normal. CARDIOVASCULAR: S1, S2. Irregularly irregular rhythm. No murmur, gallop or rub. LUNGS: Clear to auscultation anterior, slightly diminished in the bases. Otherwise clear. No adventitious breath sounds, no rales or rhonchi, no wheezes. ABDOMEN: Morbidly obese pannus. Soft, nontender, nondistended. Bowel sounds are present. EXTREMITIES: Pulses are palpable. Trace generalized edema. No clubbing or cyanosis is noted. NEUROLOGIC: The patient is awake, alert and oriented x3. She moves all extremities equally. She follows commands with ease. Unit #: [id number] #: [id number] Patient: BRYANT MOJICA DISCHARGE INSTRUCTIONS The patient has been seen and evaluated today by Dr. Cooper. She remains chest pain free and denies any complaints of shortness of breath. Her cardiac rhythm continues to be atrial fibrillation with a controlled ventricular rate. At times, she has a slow ventricular response. I have seen her rate as low as 49-50. It was discussed with Dr. Cooper in regards to continuation of her Cardizem at this time secondary to her borderline low blood pressure and episodes of slow heart rate. It was determined we would leave the Cardizem off for now. She will have her continue with her Toprol XL 50 mg p.o. b.i.d. for rate control as well as her home digoxin dosing. There are no signs or symptoms of congestive heart failure. She has also been changed from Coumadin over to a novel agent and the patient will start with Eliquis 5 mg p.o. b.i.d. for anticoagulation of her chronic atrial fibrillation. The cost has been checked on this medicine and it is determined it is about $19.00 a month. The patient is agreeable with this. She will get the first month free and then scripts have been provided. She is to follow up with her primary care physician in one to two weeks. She will also follow up with Dr. Matthias Rodriguez in the office in approximately two to three weeks. She was advised to continue compliance with her CPAP mask at home as well as to notify if any further complaints of chest pain should occur she should call the office. The patient is to be discharged home today in stable condition. Dictated by... Tip Schulte/destiny TD: 06/07/2017 08:00 JOB #: [id number] DISCHARGE SUMMARY Page 1 of 1 X Zunilda Arango APRN DISCHARGE SUMMARY
--- NOTE | ~2017-06-03 | EKG ---
PATIENT: JESSIE MOJICAY UNIT #: [id number] Ventricular Rate: 167 BPM Atrial Rate: 92 BPM QRS Duration: 98 ms Q-T Interval: 264 ms QTC Calculation(Bezet): 440 ms Calculated R [place]: -28 degrees Calculated T [place]: -5 degrees Diagnosis Line: Supraventricular tachycardia Diagnosis Line: Inferior infarct , age undetermined Diagnosis Line: Abnormal ECG Diagnosis Line: When compared with ECG of 24-APR-2017 16:30, Diagnosis Line: Supraventricular tachycardia has replaced Atrial Diagnosis Line: fibrillation Diagnosis Line: Vent. rate has increased BY 83 BPM Diagnosis Line: QRS duration has increased Diagnosis Line: Inferior infarct is now Present Diagnosis Line: Confirmed by JACQUI DRAKE MD ([id number]) on 06/04/2017 Diagnosis Line: 11:45:29 PM INTERPRETING MD: NOELLE HERRERA
--- NOTE | ~2017-06-03 | HP ---
Unit #: [id number] #: [id number] Patient: BRYANT MOJICA [id number] [address] [place], [place] [address] [id number] I MR#: [id number] NAME: BRYANT MOJICA ROOM: 558 Age: 61 Sex: F Admission Date: 06/03/2017 : 1955 Attending Physician: Matthias Rodriguez M.D. Primary Care Physician: Janae Quispe M.D. HISTORY AND PHYSICAL PRIMARY FOREIGN POLICY OFFICER Matthias Rodriguez M.D. CHIEF COMPLAINT/REASON FOR ADMISSION Palpitation and chest discomfort. HISTORY OF PRESENT ILLNESS The patient is a 61-year-old female with a past medical history of morbid obesity, obstructive sleep apnea, paroxysmal atrial fibrillation/atrial flutter on anticoagulation with Coumadin, prior stroke, hypertension, diabetes, hyperlipidemia, pulmonary fibrosis, C6 and C5 stenosis, comes in to [facility] Emergency room with history of palpitations and chest discomfort. She has been experiencing on and off episodes for the last one day, but for the last few hours has gotten much more intense, which made her come to the ER. While arrival in the ER, the patient was noted to have atrial fibrillation with RVR and also there is another EKG with atrial flutter with two-step conduction. Patient has been started on diltiazem drip and is feeling much more better with controlled ventricular response. She also had a sensation of shortness of breath. She did described the chest discomfort, which is retrosternal with no radiation. She denies PND, syncope. She has baseline orthopnea and trace pedal edema. She states being adherent to all her medications. She was recently seen in Dr. Matthias Rodriguez and was supposed to be taking diltiazem at 180 mg p.o. daily but she has been taking 60 mg p.o. b.i.d. diltiazem. Also her INR is subtherapeutic. PAST MEDICAL HISTORY As stated above. 1. Paroxysmal atrial fibrillation/atrial flutter. 2. Old cerebrovascular accident on CT. 3. Morbid obesity. 4. Obstructive sleep apnea. 5. Pulmonary fibrosis. 6. C5 and C6 stenosis. 7. Hypertension. 8. Diabetes. 9. Hyperlipidemia. PAST SURGICAL HISTORY 1. No cardiac surgeries. 2. Mastectomy. 3. Cholecystectomy. Unit #: [id number] #: [id number] Patient: BRYANT MOJICA SOCIAL HISTORY She denies smoking, alcohol or illicit drug abuse. FAMILY HISTORY Negative for premature coronary artery disease or sudden cardiac . ALLERGIES No known drug allergies. CURRENT MEDICATIONS She states taking metoprolol 50 mg p.o. b.i.d. and a questionable diltiazem 60 mg p.o. b.i.d.; Lipitor 20 mg p.o. day; Wellbutrin 100 mg p.o. day; Lanoxin 250 mcg daily; Coumadin 10 mg; gabapentin 600 mg p.o. twice a day; Lyrica 100 mg twice a day as needed for pain; mirtazapine 40 mg p.o. daily; metformin 1 g p.o. daily; Januvia 100 mg p.o. daily; Claritin 10 mg daily; Provera 10 mg twice a day; Bumex 2 mg p.o. daily; Humulin insulin; aspirin 81 mg; Synthroid 0.25 mg p.o. daily; vitamin B12 100 mcg daily; vitamin D 50,000 units p.o. daily. REVIEW OF SYSTEMS All 10-point review of system negative. The rest is as per HPI. GENERAL: No fever and no nausea. HEENT: No headache. No visual disturbances. LUNGS: Positive for shortness of breath and denies cough or hemoptysis. HEART: Positive for chest discomfort and shortness of breath and palpitations. Denies syncope. ABDOMEN: Denies nausea, vomiting or diarrhea. EXTREMITIES: Denies (1) or edema. NEUROLOGIC: Denies any motor or sensory weakness. PSYCH: Denies any hallucinations or delusions. HEME: Denies any swelling or fevers. ENDOCRINE: Denies any frequent micturition or thirst. PHYSICAL EXAMINATION VITAL SIGNS: Patient's blood pressure is 134/78, heart rate around 102 BPM, currently on diltiazem drip at 5 mg per hour. Respiratory rate is 18 and she is afebrile. GENERAL: Not in acute distress. HEENT: PERRLA. NECK: There is no thyromegaly or JVD. SKIN: No rash or ulcers seen. PSYCH: Mood and affect normal. NEUROLOGIC: Speech normal. Gross motor normal. ABDOMEN: Morbidly obese. Examination limited. Soft. RESPIRATORY: Bilateral vesicular breath sounds are heard bilaterally. HEART: S1 and S2 is heard and is irregular. I could not appreciate any murmur, rub or gallop. EXTREMITIES: Trace edema. Good distal pulses. DIAGNOSTIC STUDIES LABORATORY STUDIES: Sodium 138, potassium 4.1, chloride 105, bicarb is 22, BUN 23, creatinine 1.1, glucose is 202, magnesium 1.8, AST 65, ALT 44, INR 4.2. CARDIOLOGY STUDIES: EKG shows atrial fibrillation with RVR. There is another EKG, which also reveals 2:1 conduction atrial flutter. Unit #: [id number] #: [id number] Patient: BRYANT MOJICA ASSESSMENT AND PLAN 61-year-old with multiple medical problems, comes in with chest discomfort and palpitations. ECG concerning for atrial fibrillation/atrial flutter. 1. Paroxysmal atrial fibrillation/atrial flutter: Patient with CHADS-VASc score of 4. Agree with anticoagulation, though with therapeutic INR and adhesions with Coumadin, questionable. Discussed with patient regarding newer oral anticoagulants. Patient agreed to start with newer oral anticoagulants after listening (2) profiles and reversible agents availability. Start Eliquis 5 mg p.o. b.i.d. Discontinue Coumadin. Start patient on diltiazem 60 mg p.o. q.8 hourly and will titrate diltiazem drip off. 2. Hypertension: Diltiazem as above. Will optimize medications further. Before discharge will change diltiazem to long-acting once daily medications. 3. Obstructive sleep apnea: Continue CPAP. 4. Hyperlipidemia: Continue statin. Patient tolerating it well. 5. Diabetes: Hold metformin. Low scale sliding scale insulin. 6. Other medications continued as per home protocol. Patient's ventricular rate is controlled by tomorrow or if she can converts to normal sinus rhythm, the patient would be stable and can be possibly discharged tomorrow if doing well on Eliquis for anticoagulation and diltiazem for rate controlled strategy. 7. I do not suspect rhythm strategy would be the best option given her severe obstructive sleep apnea and pulmonary hypertension. 8. Further followup as inpatient. Dictated by Javid Marte M.D. CO/ts TD: 06/04/2017 06:21 JOB #: [id number] HISTORY AND PHYSICAL Page 1 of 1 X JAVID MARTE MD HISTORY AND PHYSICAL
[~2017-06-03 15:00] MED LIST changes: -ELIQUIS5 MG PO
[2017-06-03 15:36] LABS: BASOPHIL# 0.1 X10e3 (0-0.3); EOSINOPHIL# 0.2 X10e3 (0-0.7); EOSINOPHIL% 2.2 % (0.0-7.0); HEMATOCRIT 45.4 % (35.0-45.0); HEMOGLOBIN 14.9 gm/dL (12.0-16.0); LYMPHOCYTE# 4.3 X10e3 (1.0-3.5); LYMPHOCYTE% 43.7 % (17.0-45.0); MEAN CELL VOLUME 91.8 FL (83-96); MEAN CORPUSCULAR HEMOGLOBIN 30.2 PG (28-34); MEAN CORPUSCULAR HGB CONC 32.9 g/dL (30-36); MEAN PLATELET VOLUME 7.8 FL (6.5-11.5); MONOCYTE# 0.6 X10e3 (0-1.0); MONOCYTE% 6.4 % (3.0-12.0); NEUTROPHIL# 4.6 X10e3 (1.5-7.1); NEUTROPHIL% 46.7 % (40-75); PLATELET COUNT 332 X10e3 (140-420); RED BLOOD COUNT 4.94 X10e (3.90-5.30); RED CELL DISTRIBUTION WIDTH 16.4 % (11.0-15.5); WHITE BLOOD COUNT 9.8 X10e3 (4.0-10.5)
[2017-06-03 15:38] LABS: DIFF IND NO
[2017-06-03 15:47] LABS: INR 1.2; PARTIAL THROMBOPLASTIN TIME 28.7 SECONDS (23.5-31.3)
[2017-06-03 15:49] LABS: POC - TROPONIN <0.05 ng/mL (<=0.05)
[2017-06-03 15:51] LABS: PROTHROMBIN TIME (PATIENT) 12.7 SECONDS (10.0-11.7)
[2017-06-03 16:07] LABS: ALBUMIN SERUM 3.8 g/dL (3.5-5.0); BILIRUBIN, DIRECT 0.1 mg/dL (0.0-0.2); BILIRUBIN,INDIRECT 0.4 mg/dL (0.0-0.9); BILIRUBIN,TOTAL 0.5 mg/dL (0.2-2.0); BUN/CREATININE RATIO 20.9; CALCIUM SERUM 9.5 mg/dL (8.4-10.2); CREATININE SERUM 1.1 mg/dL (0.6-1.4); GLOM FILT RATE Estimated 53.8 mL/min (>60); MAGNESIUM 1.8 mg/dL (1.6-3.0); POTASSIUM 4.1 mmol/L (3.5-5.1); PROTEIN TOTAL SERUM 7.8 g/dL (6.0-8.3)
[2017-06-03 18:43] LABS: URINE SOURCE CLEAN CATCH
[2017-06-03 18:52] LABS: URINE APPEARANCE CLEAR; URINE BILIRUBIN NEG (NEG); URINE BLOOD NEG (NEG); URINE COLOR YELLOW; URINE GLUCOSE NEG (NEG); URINE KETONE NEG (NEG); URINE LEUKOCYTE ESTERASE NEG (NEG); URINE NITRATE NEG (NEG); URINE PROTEIN 2+ (NEG); URINE UROBILINOGEN 0.2 MG/DL (NEG)
[2017-06-03 18:55] LABS: POC - CKMB 1.8 ng/mL (0.0-7.9); POC - TROPONIN <0.05 ng/mL (<=0.05)
[2017-06-03 18:55] LABS: CULTURE INDICATED? YES; U HYALINE CASTS AUWI 0-2 /[LPF]; URINE BACTERIA AUWI 2+ (NEGATIVE); URINE SQUAMOUS EPITHELIAL CELL FEW /[HPF]
[2017-06-04 05:41] LABS: HEMATOCRIT 39.9 % (35.0-45.0); HEMOGLOBIN 13.5 gm/dL (12.0-16.0); MEAN CELL VOLUME 91.7 FL (83-96); MEAN CORPUSCULAR HEMOGLOBIN 31.1 PG (28-34); MEAN CORPUSCULAR HGB CONC 33.9 g/dL (30-36); MEAN PLATELET VOLUME 7.3 FL (6.5-11.5); RED BLOOD COUNT 4.35 X10e (3.90-5.30); RED CELL DISTRIBUTION WIDTH 16.1 % (11.0-15.5); WHITE BLOOD COUNT 8.9 X10e3 (4.0-10.5)
[2017-06-04 06:16] LABS: ALBUMIN SERUM 3.4 g/dL (3.5-5.0); BILIRUBIN,TOTAL 0.2 mg/dL (0.2-2.0); BUN/CREATININE RATIO 21.66; CREATININE SERUM 1.2 mg/dL (0.6-1.4); GLOM FILT RATE Estimated 48.4 mL/min (>60); MAGNESIUM 1.8 mg/dL (1.6-3.0); POTASSIUM 3.9 mmol/L (3.5-5.1)
[2017-06-04] MEDS ORDERED: ELIQUIS5 MG PO (11:15)
== END 2017-06-04 14:08 | disposition home or self-care (01) ==
LOC: CED 15:00 → CEDOF 16:55 → CED 19:13 → CEDOF 19:13 → C5B 20:07 → CEDOF 20:07 → C5B 06-04 14:08
PROVIDERS: Student in an Organized Health Care Education/Training Program
DX: I48.0 Paroxysmal atrial fibrillation (principal); I10 Essential (primary) hypertension; G47.33 Obstructive sleep apnea (adult) (pediatric); E78.5 Hyperlipidemia, unspecified; E11.9 Type 2 diabetes mellitus without complications; J84.10 Pulmonary fibrosis, unspecified; E66.01 Morbid (severe) obesity due to excess calories; Z85.3 Personal history of malignant neoplasm of breast; Z86.73 Personal history of transient ischemic attack (TIA), and cerebral infarction without residual deficits; Z90.10 Acquired absence of unspecified breast and nipple; Z90.49 Acquired absence of other specified parts of digestive tract; Z79.84 Long term (current) use of oral hypoglycemic drugs; Z79.899 Other long term (current) drug therapy
CPT/HCPCS: 36415; 71010; 80048; 80053; 80076; 81003; 82553; 82947; 83735; 83880; 84443; 84484; 85025; 85027; 85610; 85730; 87086; 93005; 96374; 96375; 96376; 99291; G0378; J1815